=== PATIENT | male | born 1950 | race Caucasian/White ===

== ENCOUNTER 2019-05-22 09:10 | Inpatient (IN) ==
--- NOTE | 2019-05-01 14:27 | PAT Medication Instructions ---
Medication Instructions Date of Service May 01, 2019 Home Medications aspirin 81 mg tablet,delayed release 81 mg PO QAM atorvastatin 20 mg tablet 20 mg PO QPM cilostazol 50 mg tablet 50 mg PO BID lisinopril 20 mg tablet 20 mg PO QAM tamsulosin 0.4 mg capsule 0.4 mg PO QAM multivitamin 1 tab PO QAM omega-3 fatty acids [Fish Oil Concentrate] 1,000 mg PO QAM ASK your prescriber and surgeon aspirin 81 mg tablet,delayed release 81 mg PO QAM cilostazol 50 mg tablet 50 mg PO BID STOP taking 2 weeks before surgery (or as soon as possible if surgery is within 2 weeks) omega-3 fatty acids [Fish Oil Concentrate] 1,000 mg PO QAM DO NOT take the morning of surgery lisinopril 20 mg tablet 20 mg PO QAM multivitamin 1 tab PO QAM Take morning of surgery With a small sip of water, OTHERWISE NOTHING TO EAT OR DRINK AFTER MIDNIGHT: tamsulosin 0.4 mg capsule 0.4 mg PO QAM Take evening before surgery atorvastatin 20 mg tablet 20 mg PO QPM Other Notes If you have any questions please call us at [phone] or [phone] or [phone] or [phone]
--- NOTE | 2019-05-02 13:10 | Anesthesiology Consultation ---
Date of Service May 02, 2019 Assessment & Plan (1) Encounter for pre-operative examination: PCP clearance 05/01/2019: "To whom it may concern, my patient Avelino Gabriel is medically cleared for surgery." Chart Review Chart Review: Acceptable Risk for Surgery and Patient seen in Pre Admission Testing Teaching & Discussion Instructed NPO after midnight before surgery, except medications with 15 cc of water. Medication instructions provided according to the PAT guidelines. History Surgery Operation Date: 05/22/19 11:20 Proposed Procedures p Robotic Laparoscopic Assisted Left Partial Nephrectomy - Jonathan Arita DO Height/Weight Height: 6 ft Weight: 86.5 kg Allergies Allergy/AdvReac Type Severity Reaction Status Date / Time No Known Allergies Allergy Verified 04/30/19 10:15 Medications Home Medications Medication Instructions Recorded Confirmed Last Taken aspirin 81 mg tablet,delayed 81 mg PO QAM 04/23/19 04/30/19 Unknown release atorvastatin 20 mg tablet 20 mg PO QPM 04/23/19 04/30/19 Unknown cilostazol 50 mg tablet 50 mg PO BID 04/23/19 04/30/19 Unknown lisinopril 20 mg tablet 20 mg PO QAM 04/23/19 04/30/19 Unknown tamsulosin 0.4 mg capsule 0.4 mg PO QAM 04/23/19 04/30/19 Unknown multivitamin 1 tab PO QAM 04/30/19 04/30/19 Unknown omega-3 fatty acids [Fish Oil 1,000 mg PO QAM 04/30/19 04/30/19 Unknown Concentrate] Past Medical History Medical History Hyperlipidemia Hypertension Mass of left kidney Subcutaneous cyst On abdomen Exercise / Class Metabolic Activity II 4-5 Yardwork/Stairs/Walk up hill (Denies CP or SOB with 1 FOS) Past Family History Family History Father Heart disease Past Surgical History Surgical History History of cardiac cath History of left hip replacement Hx of colonoscopy Hx of tonsillectomy Hx of vasectomy Hx of wisdom tooth extraction S/P insertion of iliac artery stent R side, ~ 2013 Past Anesthesia History No Hx of Anesthesia Complications and No Family Hx of Anesthesia Complications History of PONV No Hx of PONV and No Hx of Motion Sickness Social History Smoking Status: Current some day smoker tobacco type: cigars Do You Dip or Chew Tobacco: No Hx Alcohol Use: Yes Alcohol type: beer alcohol intake frequency: 0-2 drinks per day (Usually 1-2, occasionally up to 6) Hx Substance Use: No Review of Systems Pt denies any recent chest pain, shortness of breath, palpitations, cough, fever or URI. Physical Exam Vital Signs BP: 142/81 (pt reports fluctuating BP, but this is high-normal for him) P: 85bpm SPO2: 98% RA T: 98.2 F R: 18 ENMT Mouth: no dental restorations, no chipped teeth and no loose teeth Thyromental Distance: > or= 3.5 Finger Breadths (4) Mallampati Class: II Neck normal visual inspection and + facial hair (short mustache); neck extension not limited Respiratory normal respiratory effort Auscultation: lungs clear to auscultation bilaterally and + diminished lung sounds (slighty, B/L) Cardiovascular Rate/Rhythm: regular rate and regular rhythm Heart Sounds: no murmur Vessels: no carotid bruit Extremities: no edema Testing Laboratory Results 05/02/19 13:21 05/02/19 13:21 Urine Color Dark Yellow 05/02/19 13:21 Urine Appearance Clear (Clear) 05/02/19 13:21 Urine pH 7.0 (4.5-7.5) 05/02/19 13:21 Ur Specific [place] 1.015 (1.000-1.030) 05/02/19 13:21 Urine Protein Negative (Negative) 05/02/19 13:21 Urine Glucose (UA) Negative (Negative) 05/02/19 13:21 Urine Ketones Negative (Negative) 05/02/19 13:21 Urine Nitrite Negative (Negative) 05/02/19 13:21 Ur Leukocyte Esterase Negative (Negative) 05/02/19 13:21 Blood Type B Positive 05/02/19 13:21 Antibody Screen NEGATIVE 05/02/19 13:21 05/02/19 Unknown Urine Culture - Final Urine,Clean Catch Three types of organisms present, all low counts probable skin dorie. No further identifications or sensitivities to follow. *Surgeon's office flagged regarding elevated white blood cell count. Electrocardiogram Date: 05/02/19 Findings: + NSR @ (82bpm) Left anterior fascicular block. Right bundle branch block. Chest X-Ray Date: 03/06/19 Findings: + NAD Echocardiogram Date: 08/02/18 EF: 55% Normal ejection fraction. Mild concentric LVH. Poorly seen right ventricle. Normal left atrium. No aortic regurgitation. Aorta and aortic valve not well seen. Normal PA pressure. Trace mitral regurgitation with thickened mitral valve. Stress Test Date: 08/02/18 Type: nuclear Lexiscan stress EKG shows LBBB. Conclusion: Soft tissue attenuation. Good quality study. There is a large in size, moderate severity, partially reversible MPI defect involving the inferior, inferoseptal, inferolateral, and inferoapical myocardium. This suggests large myocardial infarction with mild rosana-infarct ischemia. Study is severely abnormal. It has changed from prior study dated 10/14/2015. Consider cardiac cath. Cardiac Catheterization Date: 08/22/18 EF 65% Left main = No angiographically evident disease. LAD = no more than mild luminal irregularities. Cx = no angiographically evident disease. Ramus = no angiographically significant disease. RCA = no angiographically significant disease. Conclusion: Essentially normal coronary arteries. Recommend guideline directed medical therapy for primary prevention of CAD.
[2019-05-02 15:43] LABS: Basophils # (auto) 0.03 K/uL (0-0.2); Basophils % (auto) 0.2 %; Eosinophils # (auto) 0.28 K/uL (0-0.5); Eosinophils % (auto) 2.3 %; Hematocrit (blood only) 43.2 % (42-52); Immature Granulocytes # (auto) 0.02 K/uL (0.00-0.02); Immature Granulocytes % (auto) 0.2 %; Lymphocytes # (auto) 1.83 K/uL (1.2-3.4); Lymphocytes % (auto) 14.8 %; Mean Corpuscular Hemoglobin 33.6 pg (25-34); Mean Corpuscular Hgb Conc 34.7 g/dL (32-36); Mean Corpuscular Volume 96.9 fL (80-100); Monocytes # (auto) 1.19 K/uL (0.11-0.59); Monocytes % (auto) 9.6 %; Neutrophils # (auto) 9.04 K/uL (1.4-6.5); Neutrophils % (auto) 72.9 %; Platelet Count 243 K/uL (130-400); RDW Coefficient of Variation 14.1 % (11.5-14.5); RDW Standard Deviation 50.3 fL (36.4-46.3); Red Blood Count 4.46 M/uL (4.7-6.1); White Blood Count 12.39 K/uL (4.8-10.8)
[2019-05-02 15:49] LABS: BUN Creatinine Ratio 12.6 (10-20); Calcium 8.9 mg/dl (8.5-10.1); Creatinine Clr Calc Pharmacy 104.7 ml/min; Est GFR (African American) 109.4; Est GFR (Non-African American) 94.4; Potassium 3.8 mmol/L (3.5-5.1)
[2019-05-02 15:51] LABS: Appearance Urine Clear (Clear); Bilirubin Urine Negative (Negative); Blood Urine Negative (Negative); Color Urine Dark Yellow; Glucose Urine UA Negative (Negative); Ketones Urine Negative (Negative); Leukocyte Esterase Urine Negative (Negative); Nitrite Urine Negative (Negative); Protein Urine Negative (Negative); Specific Gravity Urine 1.015 (1.000-1.030); Urobilinogen Urine Negative (Negative)
[~2019-05-22 09:10] MED LIST: CEFAZOLIN 2000MG 2,000 MG/15 ML SYR IV SCH; LR 15ML/HR IV SCH
[2019-05-22] MEDS ORDERED: LIDOCAINE HCL 2% 2 ML VIAL/AMP(20MG/ML) INFIL ONE (11:10)
[2019-05-22] MEDS ORDERED: LARYING-O-JET KIT (LTA) ONE (11:10)
[2019-05-22] MEDS ORDERED: HYDROmorphone INJ 2 MG/ML SYR/VIAL ONE (11:10)
[2019-05-22] MEDS ORDERED: PROPOFOL IV EMULSION 10 MG/ML 20 ML VIAL IV ONE (11:10)
[2019-05-22] MEDS ORDERED: ONDANSETRON INJ 2 MG/ML 2 ML VIAL ONE ×2 (11:10→17:25)
[2019-05-22] MEDS ORDERED: GLYCOPYRROLATE 0.2 MG/ML VIAL ONE (11:10)
[2019-05-22] MEDS ORDERED: DEXAMETHASONE SOD INJ 4 MG/ML VIAL ONE (11:10)
[2019-05-22] MEDS ORDERED: ROCURONIUM BROMIDE 10 MG/ML 5 ML VIAL ONE (11:10)
[2019-05-22] MEDS ORDERED: NEOSTIGMINE METHYLSULFATE 5 MG/5 ML SYR ONE (11:10)
--- NOTE | 2019-05-22 11:10 | History & Physical Bridge Note ---
Date of Service May 22, 2019 History & Physical Bridge Note I have examined the patient, reviewed the History & Physical and in the interval since the performance of the History & Physical I have noted the following changes of clinical significance: no changes noted
[2019-05-22] MEDS ORDERED: BUPIVACAINE 0.5 % 5 MG/1 ML MPF 30ML VIAL ONE (11:21)
[2019-05-22] MEDS ORDERED: ONDANSETRON INJ 2 MG/ML 2 ML VIAL IV PRN ×2 (12:23→19:00)
[2019-05-22] MEDS ORDERED: HYDROmorphone INJ 2 MG/ML SYR/VIAL IV PRN (12:23)
[2019-05-22] MEDS ORDERED: ePHEDrine sulfate 50 MG/ML AMP IV PRN (12:23)
[2019-05-22] MEDS ORDERED: ATROPINE SULFATE 0.1 MG/ML 10ML SYR IV PRN (12:23)
--- NOTE | 2019-05-22 12:23 | Procedure Note ---
Procedure Note Date of Service May 22, 2019 Radial arterial line placed in OR 11 after induction in preparation for partial nephrectomy with Dr. Arita. Left wrist prepped with chlorhexidine and draped with sterile towels. 20 G angiocath placed under sterile technique utilizing sterile gloves, surgical hats and masks. Catheter threaded using seldinger technique with return of pulsatile, bright red blood. Site covered with occlusive dressing and taped in place. Waveform consistent with correct arterial placement. After placement, fingers of procedural hand had normal perfusion. Patient tolerated procedure well without complications. Kacey Resendez MD, PhD Anesthesiology Coding
[2019-05-22] MEDS ORDERED: TISSEEL FIBRIN SEALANT 10ML TOP ONE (12:44)
[2019-05-22] MEDS ORDERED: SURGICEL ABSORB HEMOSTAT 2IN X 14IN TOP ONE (12:44)
[2019-05-22] MEDS ORDERED: FLOSEAL HEMOSTATIC MATRIX 10ML TOP ONE (12:59)
[2019-05-22] MEDS ORDERED: ALBUMIN HUMAN 5% 12.5 GM/250 ML VIAL IV ONE ×2 (14:46→15:44)
[2019-05-22] MEDS ORDERED: BACITRACIN INJ 50,000 UNIT VIAL ONE (15:04)
[2019-05-22] MEDS ORDERED: fentaNYL citrate 100 MCG/2 ML VIAL ONE ×2 (16:11→17:25)
[2019-05-22] MEDS ORDERED: SODIUM CHLORIDE 0.9% 250 ML IV PRN (16:43)
--- NOTE | 2019-05-22 17:06 | Post Operative Brief Note ---
PG Immediate Post Op with CF Date of Surgery May 22, 2019 Pre & Post Diagnosis Operation Date: 05/22/19 11:30 Pre-Op Diagnosis: Left Renal Mass Post-Op Diagnosis: Left Renal Mass I identified the patient and participated in the time-out.: Yes Procedure Operation Date: 05/22/19 11:30 Actual Procedures p Robotic Laparoscopic Assisted Left Partial Nephrectomy(Left) - Jonathan Arita DO Surgeon Jonathan Arita II, DO Mobile Home Installer TOD Banks and MD Raymundo Estimated Blood Loss 800 Findings Consistent with Post-Op Diagnosis Specimens Specimen Description: a. mid pole kidney mass b. upper pole kidney mass Drains Obando Catheter and Tristan-Pearl Drain (10 flat ) Anesthesia Type General Complications none Disposition Disposition: Recovery Room Overlapping Procedure I was present for: the critical portions of procedure. I was immediately available: during the entire case.
--- NOTE | 2019-05-22 17:17 | Operative Report ---
PG Post Operative Report Pre & Post Diagnosis Operation Date: 05/22/19 11:30 Pre-Op Diagnosis: Left Renal Mass Post-Op Diagnosis: Left Renal Mass I identified the patient and participated in the time-out.: Yes Procedure Operation Date: 05/22/19 11:30 Actual Procedures p Robotic Laparoscopic Assisted Left Partial Nephrectomy x 2 with extensive lysis of adhesions. (Left) - Jonathan Arita DO Surgeon Jonathan Arita, II, DO Weatherization Field Technician TOD Banks and MD Raymundo Estimated Blood Loss 800 Findings Consistent with Post-Op Diagnosis Upper pole and Mid pole renal masses on left. Specimens Left Upper Pole Renal mass Left Mid Pole Renal Mass. Drains Obando catheter. Flat JOES M Drain Anesthesia Type General Complications none Disposition Disposition: Recovery Room Indications Patient with enhancing left renal masses. Risk and benefits were discussed at length. Patient elected to undergo robotic assisted laparoscopic partial nephrectomy. Description of Procedure The patient was brought to the operative suite and placed under general endotracheal intubation anesthesia in the supine position. The patient was transferred to the lateral position with the operative side up. At this point, the patient prepped and draped in the usual sterile fashion and a timeout was completed. Preoperative antibiotics of Ancef 2 grams had been given. KERI's and SCD's were placed on the patient's lower extremities. A catheter was placed using sterile technique. With the time out completed the patient was flexed and the skin was marked. The lateral camera port site was anesthetized. A small incision was made into the skin and subcutaneous tissues. A Varess needle was selected and placed. The needle was easily moved and it was irrigated and aspirated without any issues or concerns for placement. Insufflation commenced. Once insufflated, A camera port was placed. The cavity was insufflated to 12-15 mmHG. A laparoscopic camera was placed and the abdominal cavity inspected. No bleeding, injury, or other concerning features were noted. At this point, the skin was marked for po rt placement and 8mm working ports were placed. The skin was anesthetized down to fascia and an approx 1cm incision was made to place the 2 x 8mm ports. Two assistant football coach ports were also placed in similar fashion under direct visualization. The robot was positioned and docked. The camera was placed and all trocars were positioned under direct visualization. Annetta Mondragon was integral in port placement, camera utilization, and docking procedure. She remained in sterile attire and then proceeded to assist the remainder of the case. Dr. Prashant Fonseca was readily available for assistance during rangel portions of the proceeding procedure. Dr. Fonseca assumed the merchandising assistant role for the major portion of mass removal, vessel clamping, and closure of the kidney. At this point, I transitioned to the robotic console. The colon was mobilized medially to expose the retroperitoneum and the area assessed. Adhesions were freed to allow mobilization. Severe adhesions were noted. An extensive lysis of adhesions was completed to free the colon and mobilize it medially. Cautery was used to assist dissection and control bleeding. The retroperitoneal fat was assessed. The ureter and gonadal vein were identified. The ureter was isolated and dissection was taken superiorly. This was followed to the renal pelvis. The Renal Artery and Vein were then cleaned and exposed. The artery was noted to have multiple early branches. Care was made to try to identify the common artery to allow good control. Clamp placement was assessed and good access was achieved. The perirenal fat anterior to the kidney was then dissected. The mass and surrounding tissues were exposed. The kidney was then further mobilized. The ultrasound probe was placed and the masses further examined. The edges were marked for each mass. The Vessels were assessed a final time. 2 x Bulldog clamps were placed on the artery and 1 x Bulldog clamp on the vein. The kidney appropriately blanched. Cold saline was irrigated on the kidney. The previously marked margins were used to start the incision into the kidney for the upper pole mass. The mass was completely excised without evidence of penetrating into the capsule of the mass. The base of resection bed was assessed and small vessels were cauterized. The collecting system did appear to be opened in a small area. A barbed suture was selected and the nephrotomy closed. Care was taken to close the collecting system opening. 3-0 Vicryl sutures were then used to close the edges of the elliptical opening. A total of 3 vicryl sutures were used to close and bolster the edges. The mid pole lesion was then excised. The mass was completely excised without evidence of penetrating into the capsule of the mass. The base of resection bed was assessed and small vessels were cauterized. A barbed suture was selected and the nephrotomy closed. One 3-0 Vicryl sutures were then used to close the edges of the elliptical opening. For both lesions significant bleeding was noted. Likely a due to the complexity of the branching of the artery, a posterior branch likely continued blood flow. For the two masses, 25 minutes elapsed of clamp time. Cold saline irrigant was utilized. At this point, the bulldog clamps were removed. The kidney was full assessed after removal of clamps. No bleeding or other major areas of concern. Weck and Hemolock clips were used to bolster and tightened to approximate the edges. Surgicel hemostatic agent sheets were placed on the vessels and on the incised edge. Hemostatic agents were also placed. Hemostatic agent was also placed on the vessels. No major bleeding or other issues. Gerota's tissues were replaced utilizing a running 3-0 Vicryl suture and clips to cover the area. The excised masses were placed in an endocatch bag for removal. The entire dissection space was inspected one final time. No bleeding or injuries or areas of concern were noted. No tumor or other concerning features were noted. At this point, the robot was undocked and moved away from the patient. The port sites were all assessed laparoscopically. The endoscopic bag was moved into the lower assistant football coach port. The superior 10 mm port sites were closed with the Olman Rosen device. The other ports were assessed and no issues observed. A flat drain was placed through the lateral camera port and this was secured. The shilpi tant port incision was opened further exposing fascia which was then opened in order to removed the mass within the bag. A running 1-0 PDS suture was used to close fascia. The skin at each site was closed with a running Monocryl suture. The area was cleaned and glue placed on each incision. The patient was cleaned and bandaged. The patient was moved back into the supine position The patient was cleaned, aroused from anesthesia, and transferred to the pacu in stable condition having tolerated the procedure well with no complications. I was present and participated in all aspects of the procedure. Prashant Fonseca MD was integral in the major portion of the procedure as above. Annetta Mondragon and TOD Charles were critical in the portions as mentioned above. Will plan to observe postoperatively and monitor. Obando to be removed in the morning. I attest to the content of the Intraoperative Record and any orders documented therein. Any exceptions are noted below.
[2019-05-22] MEDS: fentaNYL citrate 100 MCG/2 ML VIAL IV PRN ×2 (17:27→17:32)
[2019-05-22 17:38] LABS: Hematocrit (blood only) 37.2 % (42-52); Hemoglobin 12.6 g/dL (14.0-18.0); Mean Corpuscular Hemoglobin 33.2 pg (25-34); Mean Corpuscular Volume 97.9 fL (80-100); Mean Platelet Volume 10.8 fL (7.4-10.4); Platelet Count 222 K/uL (130-400); RDW Standard Deviation 50.5 fL (36.4-46.3); White Blood Count 24.61 K/uL (4.8-10.8)
[2019-05-22 17:39] LABS: Mean Corpuscular Hgb Conc 33.9 g/dL (32-36)
[2019-05-22 17:55] LABS: BUN Creatinine Ratio 11.7 (10-20); Calcium 8.5 mg/dl (8.5-10.1); Creatinine Clr Calc Pharmacy 72.2 ml/min; Est GFR (African American) 84.3; Est GFR (Non-African American) 72.7; Potassium 4.6 mmol/L (3.5-5.1)
--- NOTE | 2019-05-22 18:00 | Anesthesiology Progress Note ---
Date of Service May 22, 2019 Anesthesia Post Procedure Vital Signs Vital Signs: Temp Pulse Pulse Resp BP BP Pulse Ox 05/22/19 17:50 92 H 18 124/79 96 05/22/19 17:40 86 15 122/73 98 05/22/19 17:30 96 H 15 115/69 100 05/22/19 17:20 36.6 C 106 H 12 106/60 99 05/22/19 09:38 36.5 C 78 16 146/94 H 96 Pain Intensity Left Abdomen: Pain Intensity: 4 Transfer of Care Handoff Completed per policy Notes Mental Status: alert / awake / arousable and participated in evaluation Patient Amnestic to Procedure: Yes Nausea / Vomiting: adequately controlled Pain: adequately controlled Airway Patency, RR, SpO2: stable & adequate BP & HR: stable & adequate Hydration State: stable & adequate Anesthetic Complications: no major complications apparent and Pt Satisfied with anesthetic care
[2019-05-22 18:02] LABS: Basophils # (auto) 0.02 K/uL (0-0.2); Basophils % (auto) 0.1 %; Eosinophils # (auto) 0.01 K/uL (0-0.5); Immature Granulocytes # (auto) 0.11 K/uL (0.00-0.02); Immature Granulocytes % (auto) 0.4 %; Lymphocytes # (auto) 0.47 K/uL (1.2-3.4); Lymphocytes % (auto) 1.9 %; Monocytes # (auto) 0.78 K/uL (0.11-0.59); Monocytes % (auto) 3.2 %; Neutrophils # (auto) 23.22 K/uL (1.4-6.5); Neutrophils % (auto) 94.4 %
[2019-05-22 18:20] LABS: iSTAT Creatinine 0.8 mg/dl (0.6-1.3); iSTAT Hemoglobin 13.9 g/dl (14.0-18.0); iSTAT Ionized Calcium 1.23 mmol/l (1.12-1.32); iSTAT Potassium 4.6 mEq/L (3.3-5.0)
[2019-05-22] MEDS ORDERED: OXYCODONE HCL IR 5 MG TAB (IMMEDIATE RELEASE) PO PRN ×2 (19:00)
[2019-05-22] MEDS ORDERED: HYDROmorphone INJ 0.5 MG/0.5 ML SYR IV PRN (19:00)
[2019-05-22] MEDS ORDERED: HYDROmorphone INJ 1 MG/ML SYRINGE IV PRN (19:00)
[2019-05-22] MEDS: ACETAMINOPHEN 1,000 MG/100 ML VIAL IV SCH (20:02)
[2019-05-22] MEDS: LACTATED RINGER'S 1,000 ML IV SCH (20:02)
[2019-05-22] MEDS: CEFAZOLIN 2000MG 2,000 MG/15 ML SYR IV SCH (20:02)
[2019-05-22] MEDS: DOCUSATE SODIUM 100 MG CAP PO SCH (20:02)
[2019-05-22] MEDS: cilostazoL 100 MG TAB PO SCH (20:02)
[2019-05-22] MEDS ORDERED: ATORVASTATIN 20 MG TAB PO SCH (21:00)
[2019-05-23] MEDS: ACETAMINOPHEN 1,000 MG/100 ML VIAL IV SCH ×2 (03:54→12:18)
[2019-05-23] MEDS: CEFAZOLIN 2000MG 2,000 MG/15 ML SYR IV SCH (03:54)
[2019-05-23] MEDS: LACTATED RINGER'S 1,000 ML IV SCH (05:29)
[2019-05-23 06:17] LABS: Basophils # (auto) 0.01 K/uL (0-0.2); Basophils % (auto) 0.1 %; Eosinophils # (auto) 0.01 K/uL (0-0.5); Eosinophils % (auto) 0.1 %; Hematocrit (blood only) 34.8 % (42-52); Hemoglobin 11.9 g/dL (14.0-18.0); Immature Granulocytes # (auto) 0.04 K/uL (0.00-0.02); Immature Granulocytes % (auto) 0.3 %; Lymphocytes # (auto) 1.32 K/uL (1.2-3.4); Lymphocytes % (auto) 8.6 %; Mean Corpuscular Hemoglobin 32.8 pg (25-34); Mean Corpuscular Hgb Conc 34.2 g/dL (32-36); Mean Corpuscular Volume 95.9 fL (80-100); Mean Platelet Volume 11.2 fL (7.4-10.4); Monocytes # (auto) 1.75 K/uL (0.11-0.59); Monocytes % (auto) 11.4 %; Neutrophils # (auto) 12.18 K/uL (1.4-6.5); Neutrophils % (auto) 79.5 %; Platelet Count 211 K/uL (130-400); RDW Coefficient of Variation 13.7 % (11.5-14.5); Red Blood Count 3.63 M/uL (4.7-6.1); White Blood Count 15.31 K/uL (4.8-10.8)
[2019-05-23 06:54] LABS: BUN Creatinine Ratio 11.7 (10-20); Calcium 8.2 mg/dl (8.5-10.1); Creatinine Clr Calc Pharmacy 67.6 ml/min; Est GFR (African American) 77.9; Est GFR (Non-African American) 67.2; Potassium 3.9 mmol/L (3.5-5.1)
--- NOTE | 2019-05-23 08:48 | Urology Progress Note ---
Date of Service May 23, 2019 Subjective 69 yo M POD #1 s/p left partial nephrectomy secondary to renal mass with Dr. Arita. Sitting up in bed this morning. No issues overnight. No issues with pain. No N/V. Results & Data Vital Signs (Past 12 Hours) Vital Signs Temp Pulse Pulse Resp BP BP Pulse Ox 05/23/19 07:20 36.9 C 71 16 118/80 92 05/23/19 06:35 36.5 C 69 16 130/75 98 05/23/19 03:20 37.0 C 74 16 121/72 95 05/22/19 23:07 36.7 C 84 16 114/70 96 05/22/19 21:55 36.9 C 84 16 139/86 97 PG Care Time/CCT Total # of Minutes Spent Total Time Spent with Patient: Total time spent is greater than 50% in coordination of care (as documented) at patient's floor/unit and/or counseling patient:
[2019-05-23] MEDS: DOCUSATE SODIUM 100 MG CAP PO SCH (08:49)
[2019-05-23] MEDS: cilostazoL 100 MG TAB PO SCH (08:49)
[2019-05-23] MEDS ORDERED: OMEGA-3 (PURIFIED FISH OIL) 1 GM CAP PO SCH (09:00)
[2019-05-23] MEDS ORDERED: ASPIRIN 81 MG ECTAB PO SCH (09:00)
[2019-05-23] MEDS ORDERED: TAMSULOSIN HCL 0.4 MG CAP PO SCH (09:00)
[2019-05-23] MEDS ORDERED: MULTIVITAMIN TAB PO SCH (09:00)
[2019-05-23] MEDS ORDERED: lisinopriL 20 MG TAB PO SCH (09:00)
--- NOTE | 2019-05-23 12:35 | Urology Progress Note ---
Date of Service May 23, 2019 Assessment & Plan (1) Left renal mass: 69yo M POD #1 s/p left partial nephrectomy with Dr. Arita. Patient is progressing as expected. Will advance diet to regular. D/c IVFs, d/c espinosa catheter As long as patient continues to progress, voiding spontaneously he can discharge home after spontaneous void. d/c giselle drain prior to discharge. Subjective 69 yo M POD #1 s/p left partial nephrectomy secondary to renal mass with Dr. Arita. Sitting up in bed this morning. No issues overnight. No issues with pain. No N/V. Tolerating clear liquids, states he's "ready for a burger". Espinosa draining pink tinged, mild clots. GISELLE draining moderate serosang with mild oozing around GISELLE insertion site. Pain controlled with PO options only. Review of Systems Review of Systems: All systems reviewed & are unremarkable except as noted in HPI & below Physical Exam Physical Exam: A&Ox3 RRR abd soft, nontender espinosa draining pink tinged GISELLE with moderate serosang output Results & Data Vital Signs (Past 12 Hours) Vital Signs Temp Pulse Pulse Resp BP BP Pulse Ox 05/23/19 12:10 36.7 C 75 14 169/63 H 92 05/23/19 07:20 36.9 C 71 16 118/80 92 05/23/19 06:35 36.5 C 69 16 130/75 98 05/23/19 03:20 37.0 C 74 16 121/72 95 PG Care Time/CCT Total # of Minutes Spent Total Time Spent with Patient: Total time spent is greater than 50% in coordination of care (as documented) at patient's floor/unit and/or counseling patient:
--- NOTE | 2019-05-30 06:40 | Coding Query ---
PATHOLOGY To promote full compliance with coding requirements relating to patient care, physician participation is requested in all cases of medical radiation therapist uncertainty. Please assist us with the question(s) below: Dr. Arita, Please review the Pathology report and please document any relevant diagnosis(es) below: Renal Cell Carcinoma Diagnosis(es): Thank you for your time, LAN Wright, [facility]
--- NOTE | 2019-06-02 12:53 | Discharge Summary ---
Date of Service June 02, 2019 Admission HPI Per Admitting Provider See H&P Admission Exam Per Admitting Provider See H&P Principal Diagnosis Renal Masses Discharge Exam General: Alert in no acute distress. HEENT: Normocephalic Atraumatic. Inspection normal. Cranial Nerves 2-12 Grossly intact. Normal inspection of face. Normal inspection of neck. Psychologic: Normal affect. Respiratory: Nonlabored. No use of accessory muscles. No tachypnea or dyspnea. Cardiovascular: No tachycardia Skin: [place] and Dry. No rashes or visible lesions. Extremities/Lymphatics: No edema Abdomen: Minor tenderness. Mild distended. No rebound or guarding. Discharge Data Allergies Allergy/AdvReac Type Severity Reaction Status Date / Time No Known Allergies Allergy Verified 05/22/19 09:34 Procedures Performed Operation Date: 05/22/19 11:30 Actual Procedures p Robotic Laparoscopic Assisted Left Partial Nephrectomy(Left) - Jonathan henry DO Hospital Course (1) Left renal mass: 69yo M POD #1 s/p left partial nephrectomy with Dr. Arita. Patient is progressing as expected. Will advance diet to regular. D/c IVFs, d/c espinosa catheter As long as patient continues to progress, voiding spontaneously he can discharge home after spontaneous void. d/c giselle drain prior to discharge. Total Time Total Time Spent Total Time Spent (In Minutes): 15 Total Time Includes: Examination of the Patient, Discharge Planning, Medication Reconciliation and Communication With Other Providers Discharge Plan Discharge Items Patient Disposition: Home - Self-Care Reason For Visit: LEFT RENAL MASS Discharge Diagnosis: left renal mass Activity: Per Instructions section Lifting: No more than 25 pounds Bathing: Keep incision dry Sexual Activity: Wait until after follow-up appointment Exercise/Sports: Wait until after follow-up appointment Driving/Machine Use: Resume 1 day after discharge Non-emergency contact: Urologist Call non-emergency contact if: your pain is worsening, your wound has increased redness, your wound has increased drainage and your wound pain has increased Follow-up/Referrals: Jonathan Arita DO [Physician] - 06/09/19 Mark Morrow DO [Primary Care Provider] - Diet: Regular Addtl Attending Provider Instructions: Please take all medications as prescribed and keep all follow-ups as scheduled. Please call our office at [phone] with any questions, concerns or need to reschedule appointments for any reason. We are happy to assist you. Recovering at home: We recommend having someone with you for the first few days after surgery to help care for you. It is okay to shower tomorrow. Please avoid swimming, bathing or using hot tub until incisions are well healed. Avoid driving until you are not requiring pain medication any further. Walk at least a few times a day. Increase your distance, as you feel able. Stairs in your home are okay. Please avoid strenuous or sexual activity until your follow-up. We recommend using stool softener (i.e. Colace) to prevent constipation and straining, especially the first two weeks post operatively. Call [facility] [place] [facility] at [phone] if you experience: Chest pain or trouble breathing (call [phone] or go to the hospital). Fever of 101F or higher Symptoms of infection at incision site, including redness or swelling, warmth, or bad-smelling drainage If you have catheter, and you notice: o Bloody urine or drainage that is dark red or has large clots (Please remember a small amount of blood is normal) o No drainage from the catheter for more than 6 hours o The catheter comes out of your bladder Pain that is not controlled with medicines Pending Studies at Discharge: Yes (path) Stand-Alone Forms: My [facility] App47, Smoking Cessation Medications and DC Order Prescriptions: New oxycodone-acetaminophen [Percocet] 5-325 mg tablet 1 tab PO TID PRN (Reason: pain) Qty: 14 RF: 0 docusate sodium [Colace] 100 mg capsule 100 mg PO BID Qty: 60 RF: 0 Continued lisinopril 20 mg tablet 20 mg PO QAM RF: 0 atorvastatin 20 mg tablet 20 mg PO QPM RF: 0 tamsulosin 0.4 mg capsule 0.4 mg PO QAM RF: 0 cilostazol 50 mg tablet 50 mg PO BID RF: 0 aspirin 81 mg tablet,delayed release (DR/EC) 81 mg PO QAM RF: 0 multivitamin Tablet 1 tab PO QAM RF: 0 omega-3 fatty acids [Fish Oil Concentrate] 1,000 mg Capsule 1,000 mg PO QAM RF: 0 Discharge Orders: Discharge Order (Routine); Ordered 05/23/19 Ordered By: Annetta Lock/Other Patient Handouts: Nephrectomy Dc, Oxycodone Hydrochloride Acetaminophen Oral tablet Admission Data Admit Date/Time: 05/22/19 17:11 Attending Provider: Jonathan Arita Admit Provider: Jonathan Arita Primary Care Provider: Mark Morrow Other Interventions: Discharge Summary Assessment (RN) Last Done: 05/23/19 13:06 DC Date/Time DO NOT enter until pt leaves facility: 05/23/19 14:00
== END 2019-05-23 14:00 | disposition home or self-care (01) | DRG 658 ==
LOC: ASU 09:10 → 3W 17:11